=== PATIENT | female | born 2000 | race Caucasian/White ===

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

== ENCOUNTER 2019-04-25 15:37 | Emergency (ER) | payer MEDICAID, OTHER ==
[2019-04-25 16:01] VITALS: BP 109/61
--- NOTE | 2019-04-25 18:01 | UC ---
Eye Complaint HPI - HPI Summary HPI Summary: 18-year-old female presents with complaints of right eye redness, watering, and itching that started yesterday. States she wears contacts but has not worn them in over a week. Mild nasal congestion. History of seasonal allergies. Denies injury, blurred vision, double vision, photophobia, foreign body sensation, purulent discharge. - History of Current Complaint Chief Complaint: UCEye Stated Complaint: RIGHT EYE CONCERN Time Seen by Provider: 04/25/19 17:18 Hx Obtained From: Patient Hx Last Menstrual Period: 04/18/19 Pain Intensity: 0 - Allergies/Home Medications Allergies/Adverse Reactions: Allergies Allergy/AdvReac Type Severity Reaction Status Date / Time No Known Allergies Allergy Verified 04/25/19 15:58 Home Medications: Home Medications Norgestimate-Ethinyl Estradiol [Ortho Tri-Cyclen Lo Tablet] 1 tab DAILY [History Confirmed 04/25/19] PMH/Surg Hx/FS Hx/Imm Hx Previously Healthy: Yes - Denies significant PMH - Surgical History Surgical History: None - Family History Known Family History: Positive: Other - fibrocystic breast disease - Social History Occupation: Employed Full-time Alcohol Use: None Substance Use Type: None Smoking Status (MU): Never Smoked Tobacco Have You Smoked in the Last Year: No - Immunization History Most Recent Influenza Vaccination: Not the 2012/2013 Vaccination Up to Date: Yes Review of Systems All Other Systems Reviewed And Are Negative: Yes Constitutional: Negative: Fever, Chills Eyes: Positive: Eye Redness, Other - itching, watering. Negative: Blurred Vision, Diplopia, Drainage, Photophobia ENT: Negative: Sore Throat, Ear Ache, Nasal Discharge, Sinus Congestion, Sinus Pain/Tenderness Respiratory: Negative: Cough Cardiovascular: Positive: Negative Gastrointestinal: Positive: Negative Genitourinary: Positive: Negative Neurovascular: Positive: Negative Musculoskeletal: Positive: Negative Neurological: Positive: Negative Is Patient Immunocompromised?: No Physical Exam - Summary Physical Exam Summary: GENERAL APPEARANCE: Well developed, well nourished, alert and cooperative, and appears to be in no acute distress. EYES: Left conjunctiva clear. Right conjuctival erythema with tearing. No drainage. PERRL, EOM intact. Vision is grossly intact. No FB noted. NOSE: No nasal discharge. THROAT: Pharynx normal. No tonsilar inflammation, swelling, exudate, or lesions. Uvula midline. Oral cavity normal. Teeth and gingiva in good general condition. NECK: Neck supple, non-tender without lymphadenopathy. CARDIAC: Normal S1 and S2. No S3, S4 or murmurs. Rhythm is regular. There is no peripheral edema, cyanosis or pallor. Extremities are warm and well perfused. Capillary refill is less than 2 seconds. Peripheral pulses intact. LUNGS: Clear to auscultation without rales, rhonchi, wheezing or diminished breath sounds. ABDOMEN: Positive bowel sounds. Soft, nondistended, nontender. No guarding or rebound. No masses or hepatosplenomegally. MUSKULOSKELETAL: ROM intact to all extremities. No joint erythema or tenderness. Normal muscular development. Normal gait. SKIN: Skin normal color, texture and turgor with no lesions or eruptions. Triage Information Reviewed: Yes Vital Signs: Initial Vital Signs Temp 98 F 04/25/19 15:58 Pulse 62 04/25/19 15:58 Resp 16 04/25/19 15:58 BP 109/61 04/25/19 15:58 Pulse Ox 100 04/25/19 15:58 Vital Signs Reviewed: Yes Eye Complaint Course/Dx - Course Course Of Treatment: 18-year-old female presents with complaints of right eye redness, watering, and itching that started yesterday. States she wears contacts but has not worn them in over a week. Mild nasal congestion. History of seasonal allergies. Denies injury, blurred vision, double vision, photophobia, foreign body sensation, purulent discharge. Afebrile. Vital signs stable. Patient hand mild right conjunctival erythema with tearing. No purulent discharge or foreign body noted. Suspect symptoms may be an allergic versus viral conjunctivitis with the absence of purulent discharge. Will start her on olopatadine 1% twice a day to treat for an allergic conjunctivitis. She is to follow-up with her primary care provider in 3 days if no improvement in symptoms. Anticipatory guidance and warning symptoms were reviewed with the patient. She verbalizes understanding and agrees with plan of care. - Differential Dx/Diagnosis Differential Diagnosis/HQI/PQRI: Conjunctivitis, Corneal Abrasion, Foreign Body , Periorbital Cellulitis Provider Diagnosis: Allergic conjunctivitis Discharge - Sign-Out/Discharge Documenting (check all that apply): Patient Departure All imaging exams completed and their final reports reviewed: No Studies - Discharge Plan Condition: Stable Disposition: HOME Prescriptions: Olopatadine 0.1% OPHTH (NF) [Patanol 0.1% OPHTH (NF)] 0.1 % OP BID #1 naif Patient Education Materials: Conjunctivitis (ED) Referrals: Pedro Diego MD [Primary Care Provider] - 3 Days Additional Instructions: Without the presence of drainage, I suspect that your symptoms are from an allergic conjunctivitis. Start olopatadine 1% ophthalmic 1 drop into the affected eye(s) twice a day. Follow-up with your primary care provider in 3 days if symptoms are not improving. Seek immediate medical attention if you develop fever, have visual disturbances , swelling of the eye, purulent discharge from the eye, or any worsening of symptoms. - Billing Disposition and Condition Condition: STABLE Disposition: Home
== END 2019-04-25 18:14 | disposition home or self-care (01) ==
LOC: UCCORT 15:37
DX: H10.11 Acute atopic conjunctivitis, right eye (principal)
CPT/HCPCS: 99212; G0463

== ENCOUNTER 2019-08-13 08:16 | Emergency (ER) | payer OTHER ==
--- OUTSIDE RECORDS SUMMARY | 2019-08-13 08:25 | XMS REPORT | Continuity of Care Document ---
:2000 External Reference #:[id number] Author Name Valeria Stanley PA Address [address] [place] [address] Care Team Providers Name Role Phone Valeria Stanley PA - Medical Care Team Information Packing Line Operator [phone] Problems Description No Information Available Social History Type Date Description Comments Sex Unknown ETOH Use Denies alcohol use Tobacco Use Start: Unknown Patient denies history of smoking Recreational Drug Use Denies Drug Use Smoking Status Reviewed: 07/09/19 Patient denies history of smoking Exercise Type/Frequency Exercises regularly 2-4 times per week. Cardio and weights. Allergies, Adverse Reactions, Alerts Active Allergies Reaction Severity Comments Date Bee Sting 11/21/2017 Medications Active Medications SIG Qnty Indications Ordering Provider Date Ortho Tri-Cyclen Lo 1 by mouth every Unknown day 0.18/0.215/0.25 mg-25 mcg Tablets Benadryl Allergy 1 by mouth every 6 Unknown 25mg hours for swelling Capsules in face Epipen 2-Rainer use as directed as Unknown needed for 0.3mg/0.3ML Solution allergic reaction Auto-Inject Immunizations Description No Information Available Vital Signs Date Vital Result Comment 07/09/2019 1:05pm BP Systolic 112 mmHg BP Diastolic 72 mmHg Body Temperature 98.9 F Heart Rate 60 /min Respiratory Rate 18 /min Height 65 inches 5'5" Weight 157.00 lb BMI (Body Mass Index) 26.1 kg/m2 BSA (Body Surface Area) 1.78 m2 [place] body weight in kilograms 57 kg Height Percentile 61 % Weight Percentile 86th O2 % BldC Oximetry 98 % 05/02/2018 3:39pm BP Systolic 117 mmHg BP Diastolic 70 mmHg Height 64 inches 5'4" Weight 139.00 lb BMI (Body Mass Index) 23.9 kg/m2 BSA (Body Surface Area) 1.68 m2 [place] body weight in kilograms 54 kg Height Percentile 46 % Weight Percentile 73rd Results Description No Information Available Procedures Description No Information Available Medical Devices Description No Information Available Encounters Description No Information Available Assessments Date Code Description Provider 07/09/2019 M41.30 Thoracogenic scoliosis, site unspecified Valeria Stanley PA 07/09/2019 Z30.8 Encounter for other contraceptive management Valeria Stanley PA Plan of Treatment 07/09/2019 - Valeria Stanley, PAM41.30 Thoracogenic scoliosis, site unspecifiedComments:Mild thoracic curvature. Continue with regular stretching and strengthening .Remember to work on good posture. Further evaluation or treatment is not needed, as growth is complete.Z30.8 Encounter for other contraceptive managementComments:Patient is satisfied w current OCP. Will continue. Recommend STD testing at next PE. Functional Status Description No Information Available Mental Status Description No Information Available Referrals Description No Information Available
[2019-08-13 08:44] VITALS: BP 121/68
--- NOTE | 2019-08-13 09:35 | ED ---
Throat Pain/Nasal Congestion - HPI Summary HPI Summary: 18 yr old female with the complaint of runny nose, and right ear pain. ONset of URI symptoms five days ago, and now has pain in the right ear. No fever. No SOB. No dizziness. - History of Current Complaint Chief Complaint: UCGeneralIllness Time Seen by Provider: 08/13/19 08:50 - Allergies/Home Medications Allergies/Adverse Reactions: Allergies Allergy/AdvReac Type Severity Reaction Status Date / Time No Known Allergies Allergy Verified 08/13/19 08:44 PMH/Surg Hx/FS Hx/Imm Hx Endocrine/Hematology History: Denies: Hx Diabetes Respiratory History: Denies: Hx Asthma Infectious Disease History: No Infectious Disease History: Denies: Traveled Outside the [place] in Last 30 Days - Family History Known Family History: Positive: Other - fibrocystic breast disease - Social History Alcohol Use: None Substance Use Type: Reports: None Smoking Status (MU): Never Smoked Tobacco Have You Smoked in the Last Year: No Review of Systems Constitutional: Negative Positive: Ear Ache Positive: Cough All Other Systems Reviewed And Are Negative: Yes Physical Exam Triage Information Reviewed: Yes Vital Signs On Initial Exam: Initial Vitals Temp Pulse Resp BP Pulse Ox 97.9 F 71 15 121/68 100 08/13/19 08:41 08/13/19 08:41 08/13/19 08:41 08/13/19 08:41 08/13/19 08:41 Vital Signs Reviewed: Yes Appearance: Positive: Well-Appearing, No Pain Distress Skin: Positive: Warm, Skin Color Reflects Adequate Perfusion Head/Face: Positive: Normal Head/Face Inspection Eyes: Positive: EOMI ENT: Positive: TM red - right with effusion. Negative: Pharyngeal erythema Neck: Positive: Nontender Respiratory/Lung Sounds: Positive: Clear to Auscultation, Breath Sounds Present Cardiovascular: Positive: RRR. Negative: Murmur Abdomen Description: Positive: Nontender Musculoskeletal: Positive: Strength/ROM Intact Neurological: Positive: Sensory/Motor Intact, Alert, Oriented to Person Place, Time, CN Intact II-III, Normal Gait, Speech Normal Diagnostics - Vital Signs Vital Signs Temp Pulse Resp BP Pulse Ox 08/13/19 08:41 97.9 F 71 15 121/68 100 - Laboratory Lab Statement: Any lab studies that have been ordered have been reviewed, and results considered in the medical decision making process. EENT Course/Dx - Course Course Of Treatment: 18 yr old with URI. Right OM. DC home. - Diagnoses Provider Diagnoses: Right otitis media Discharge ED - Sign-Out/Discharge Documenting (check all that apply): Patient Departure All imaging exams completed and their final reports reviewed: No Studies - Discharge Plan Condition: Good Disposition: HOME Prescriptions: Amoxicillin PO (*) [Amoxicillin 500 MG CAP*] 500 mg PO TID #30 cap Patient Education Materials: Ear Infection (ED) Referrals: Valeria Stanley PA [Primary Care Provider] - 2 Days - Billing Disposition and Condition Condition: GOOD Disposition: Home
== END 2019-08-13 09:35 | disposition home or self-care (01) ==
LOC: UCCORT 08:16
DX: H66.91 Otitis media, unspecified, right ear (principal); R09.89 Other specified symptoms and signs involving the circulatory and respiratory systems
CPT/HCPCS: 99212; G0463